=== PATIENT | male | born 1960 | race Caucasian/White ===

== ENCOUNTER 2017-09-17 05:50 | Inpatient (IN) | payer OTHER ==
[~2017-09-17] VITALS: Ht 182.9 cm; Wt 81.6 kg
[2017-09-17] VITALS (12 sets, daily range): BP systolic 117–166; BP diastolic 81–101
[2017-09-17] MEDS ORDERED: Vancomycin 1gm/D5W 275ml IVPB ONE ×2 (06:00)
[2017-09-17] MEDS ORDERED: Pantoprazole Inj IVP ONE (06:00)
[2017-09-17] MEDS ORDERED: Pantoprazole Inj ONE (06:11)
[2017-09-17] MEDS ORDERED: Vancomycin 1gm inj IVPB ONE (06:11)
[2017-09-17] MEDS ORDERED: Zemuron 50mg/5ml Inj IV ONE (06:12)
[2017-09-17] MEDS ORDERED: Sodium Chloride 10ml vial INJ ONE ×3 (06:24→09:48)
[2017-09-17] MEDS ORDERED: TRAMADOL HCL50 MG ORAL (06:37)
[2017-09-17] MEDS ORDERED: Dexamethasone 4mg/ml vial ONE ×2 (06:37→06:54)
[2017-09-17] MEDS ORDERED: Lidocaine 1% MPF 10mg/ml 5ml ONE (06:37)
[2017-09-17] MEDS ORDERED: NORCO 10-325 T1 EACH ORAL (06:37)
[2017-09-17] MEDS ORDERED: LISINOPRIL5 MG ORAL (06:37)
[2017-09-17] MEDS ORDERED: Lidocaine 1% Plain 30 ml INJ ONE ×4 (06:46→12:25)
[2017-09-17] MEDS ORDERED: LR 1000ml 1,000 ML IVLG SCH (06:50)
--- NOTE | 2017-09-17 06:52 | Anethesia Preoperative Eval ---
Anesthesia Pre-op PMH/ROS General Date of Evaluation: Sep 17, 2017 Time of Evaluation: 07:41 Anesthesiologist: Agustin ASA Score: ASA 2 Mallampati Score Class I : Soft palate, uvula, fauces, pillars visible Class II: Soft palate, uvula, fauces visible Class III: Soft palate, base of uvula visible Class IV: Only hard plate visible Mallampati Classification: Class II Surgeon: Lilli Diagnosis: Back Pain Surgical Procedure: TLIF L4-S1 Anesthesia History: none Family History: no anesthesia problems Allergies: Coded Allergies: No Known Allergies (Unverified , 09/10/17) Medications: see eMAR Past Medical History Cardiovascular: Reports: HTN PSxH Narrative: Sinus SX, Clavicular SX, L Femur Fx, RIH Anesthesia Pre-op Phys. Exam Physician Exam Last Vital Signs Date Time Temp Pulse Resp B/P (MAP) Pulse Ox O2 Delivery O2 Flow Rate FiO2 09/17/17 06:37 97.7 70 18 125/83 97 Room Air 97.7 Constitutional: NAD Neurologic: CN 2-12 intact Cardiovascular: RRR Respiratory: CTA Gastrointestinal: S/NT/ND Airway Exam Mallampati Score: Class II MO: full ROM: full Teeth: intact Anesthesia Pre-op A/P Risk Assessment & Plan Assessment: ASA 2 Plan: GA, BIS, GlideScope Status Change Before Surgery: No Pre-Antibiotics Dru Gram Vancomycin, 80 mg Gentamicin IV Given Within 1 Hr of Incision: Yes Time Given: 08:01 Faizan Velez MD Sep 17, 2017 06:52
[2017-09-17] MEDS ORDERED: fentaNYL 100 mcg/2 mL IV ONE ×4 (06:56→11:27)
[2017-09-17] MEDS ORDERED: fentaNYL 100 mcg/2 mL IV PRN (07:00)
[2017-09-17] MEDS ORDERED: oxyCODONE HCL/Acetaminophen 5/325mg ORAL PRN (07:00)
[2017-09-17] MEDS ORDERED: Hydromorphone 0.5mg/0.5ml inj IVP PRN (07:00)
[2017-09-17] MEDS ORDERED: Labetalol 5mg/ml 20ml vial IV PRN (07:00)
[2017-09-17] MEDS ORDERED: Norco 5mg/325mg tab ORAL PRN (07:00)
[2017-09-17] MEDS ORDERED: Metoclopramide 10mg/2ml Inj IVP PRN (07:00)
[2017-09-17] MEDS ORDERED: Atropine Inj 1mg/10ml Syr IV PRN (07:00)
[2017-09-17] MEDS ORDERED: Propofol 1,000mg/ 100ml btl IV ONE (07:00)
[2017-09-17] MEDS ORDERED: HYDROcodone/Acetamin 7.5/325 tab ORAL PRN ×3 (07:00→15:42)
[2017-09-17] MEDS ORDERED: Ketorolac 30mg Inj IV PRN ×2 (07:00)
[2017-09-17] MEDS ORDERED: LORazepam Inj 2mg/ml 1ml IV PRN (07:00)
[2017-09-17] MEDS ORDERED: DiphenhydrAMINE 50mg/ml Inj IVP PRN (07:00)
[2017-09-17] MEDS ORDERED: Midazolam 2mg/2ml Inj IVP PRN (07:00)
[2017-09-17] MEDS ORDERED: Heparin 1000 units/ml 1ml Vial ONE (07:09)
[2017-09-17] MEDS ORDERED: EPINEPHrine 1mg/1ml Amp ONE ×2 (07:09→08:44)
[2017-09-17] MEDS ORDERED: Thrombin 5000 units spray kit TOPIC ONE ×2 (07:09→10:32)
[2017-09-17] MEDS ORDERED: Thrombin 5000 units TOPIC ONE (07:10)
[2017-09-17] MEDS ORDERED: Bupivacaine 0.5% Inj 30 ml vial INJ ONE ×2 (07:11→08:44)
[2017-09-17] MEDS ORDERED: Gelfoam Absorbable 1gm powder pkt TOPIC ONE ×2 (07:11→10:32)
[2017-09-17] MEDS ORDERED: Bacitracin 50000 Units Vial ONE (07:11)
--- NOTE | 2017-09-17 07:29 | Immediate Post-Op Evaluation ---
Immediate Post-Op Evalulation Immediate Post-Op Evalulation Procedure: TLIF L4-S1 Date of Evaluation: Sep 17, 2017 Time of Evaluation: 14:13 IV Fluids: 1800 LR Blood Products: 0 Estimated Blood Loss: 200 Urinary Output: 1800 Blood Pressure Systolic: 166 Blood Pressure Diastolic: 94 Pulse Rate: 92 Respiratory Rate: 16 O2 Sat by Pulse Oximetry: 100 Temperature (Fahrenheit): 98 Pain Score (1-10): 3 Nausea: No Vomiting: No Complications 0 Patient Status: awake, reacts, patent, extubated, none Hydration Status: adequate Dru Gram Vancomycin, 80 mg Gentamicin IV Given Within 1 Hr of Incision: Yes Time Given: 08:01 Faizan Velez MD Sep 17, 2017 07:29
--- NOTE | 2017-09-17 07:59 | Pre-Procedure Note/Attestation ---
Pre-Procedure Note/Attestation Complete Prior to Procedure Planned Procedure: bilateral Procedure Narrative: Posterior lumbar decompression at L4-5 and L5-S1 Bilaterally, Pedicle screw fixation L4 to S1, interbody fusion with cage at L5-S1, Posterolateral arthrodesis at L4 to S1, application of epidural fat graft and use of allograft , autograft and iliac crest bone marrow aspirate. Attestation I attest that I discussed the nature of the procedure; its benefits; risks and complications; and alternatives (and the risks and benefits of such alternatives ), prior to the procedure, with the patient (or the patient's legal textile designs sales representative). I attest that, if there was a reasonable possibility of needing a blood transfusion, the patient (or the patient's legal textile designs sales representative) was given the [place] Department [employer] Services standardized written summary, pursuant to the [place] Blood Safety Act ([place] Health and Safety Code # 1645, as amended). I attest that I re-evaluated the patient just prior to the surgery and that there has been no change in the patient's H&P, except as documented below: MARYAM CHOWDARY Sep 17, 2017 07:59
[2017-09-17] MEDS ORDERED: NS Irrig 1000ml ONE (08:00)
[2017-09-17] MEDS ORDERED: Sterile Water Irrig 1000ml IRRIG ONE (08:00)
[2017-09-17] MEDS ORDERED: Acetaminophen (Non formulary) 100 ML IV ONE ×2 (08:00→14:45)
[2017-09-17] MEDS ORDERED: LR 1000ml ONE (08:00)
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
--- NOTE | 2017-09-17 14:31 | General Progress Note ---
Progress Note Progress Note Neurosurgery Recovery Room S/ Comfortable No leg pain O/ Vs: Last 24 Hour Vital Signs Date Time Temp Pulse Resp B/P (MAP) Pulse Ox O2 Delivery O2 Flow Rate FiO2 09/17/17 14:02 98 95 16 166/94 100 Simple Mask 6.0 98.0 09/17/17 14:00 208.4 92 16 100 09/17/17 09:00 97.7 09/17/17 06:37 97.7 70 18 125/83 97 Room Air 97.7 Alert smiling in good spirit Moves all extremities well Normal sensation in the upper and lowers bilaterally Dressing dry HV minimal output Doing well Admit to floor updated MARYAM CHOWDARY Sep 17, 2017 14:31
--- NOTE | 2017-09-17 15:42 | Diagnostic Imaging Report ---
Indication: Intraoperative, low back pain and left lower extremity greater than right lower extremity pain Technique: Intraoperative images Comparison: none Findings: Intraoperative images demonstrate surgical tool posterior to S1. Subsequent images document posterior fusion of L4, L5, and S1, and placement of a disc spacer at L5-S1 Impression: Intraoperative imaging, as described
[2017-09-17] MEDS: Acetaminophen (Non formulary) 100 ML IV SCH ×2 (15:45→16:31)
[2017-09-17] MEDS ORDERED: traMADol 50mg tab ORAL PRN (15:46)
[2017-09-17] MEDS ORDERED: Milk of Magnesia 30ml Ud ORAL PRN (15:47)
[2017-09-17] MEDS: NS w/KCl 20mEq 1,000 ML IV SCH (16:30)
[2017-09-17] MEDS: Docusate Sod/Senna tab ORAL SCH (17:50)
[2017-09-17] MEDS: Docusate 100mg cap ORAL SCH (17:50)
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
[2017-09-17] MEDS: Vancomycin 1 GM in D5W 275 ML IVPB SCH (20:14)
[2017-09-17] MEDS: Cyclobenzaprine 10mg Tab ORAL PRN (20:16)
[2017-09-18] VITALS: BP 140/72
[2017-09-18] MEDS: NS w/KCl 20mEq 1,000 ML IV SCH ×2 (03:47→12:07)
[2017-09-18 04:00] VITALS: BP 137/84
[2017-09-18 06:20] LABS: HEMOGLOBIN 12.9 G/DL (14.2-18.0); MEAN CORPUSCULAR VOLUME 86 FL (80-99); PLATELET COUNT 132 K/UL (150-450); RED BLOOD COUNT 4.19 M/UL (4.70-6.10); RED CELL DISTRIBUTION WIDTH 10.4 % (11.6-14.8); WHITE BLOOD COUNT 12.4 K/UL (4.8-10.8)
[2017-09-18 06:34] LABS: ANION GAP 4 mmol/L (5-15); BLOOD UREA NITROGEN 9 mg/dL (7-18); CALCIUM 8.3 MG/DL (8.5-10.1); CARBON DIOXIDE 30 MMOL/L (21-32); CHLORIDE 105 MMOL/L (98-107); CREATININE 0.8 MG/DL (0.55-1.30); POTASSIUM 3.9 MMOL/L (3.5-5.1); SODIUM 139 MMOL/L (136-145)
[2017-09-18] MEDS ORDERED: Meperidine 50mg/ml Inj(FOR RIGORS ONLY) IM PRN (07:00)
[2017-09-18] MEDS ORDERED: HydrOXYzine tab 25 MG TAB ORAL PRN (07:00)
[2017-09-18 08:00] VITALS: BP 127/74
[2017-09-18] MEDS: Hydromorphone 0.5mg/0.5ml inj IVP PRN ×2 (08:06→12:47)
--- NOTE | 2017-09-18 08:35 | 48 Hour Post Anesthesia Eval ---
Post Anesthesia Evaluation Procedure: TLIF L4-S1 Date of Evaluation: Sep 18, 2017 Time of Evaluation: 04:00 Blood Pressure Systolic: 137 0: 84 Pulse Rate: 66 Respiratory Rate: 18 Temperature (Fahrenheit): 97.7 O2 Sat by Pulse Oximetry: 97 Airway: patent Nausea: No Vomiting: No Pain Intensity: 0 Hydration Status: adequate Mental Status/LOC: patient returned to baseline Post-Anesthesia Complications: none Follow-up care needed: N/A Janell Dahl M.D. Sep 18, 2017 08:35
[2017-09-18] MEDS: Docusate Sod/Senna tab ORAL SCH ×2 (09:00→18:00)
[2017-09-18] MEDS ORDERED: Lisinopril 2.5mg tab ORAL SCH (09:00)
[2017-09-18] MEDS: Docusate 100mg cap ORAL SCH ×2 (09:00→18:00)
[2017-09-18] MEDS: Vancomycin 1 GM in D5W 275 ML IVPB SCH (09:08)
[2017-09-18] MEDS: Lisinopril 2.5mg tab ORAL SCH (09:09)
[2017-09-18 12:00] VITALS: BP 128/73
[2017-09-18 16:00] VITALS: BP 129/84
[2017-09-18] MEDS ORDERED: HYDROmorphone 2mg tab ORAL PRN (16:30)
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
[2017-09-18] MEDS: HYDROmorphone 2mg tab ORAL SCH ×2 (17:32→20:19)
[2017-09-18 20:06] VITALS: BP 147/89
[2017-09-18] MEDS: Cyclobenzaprine 10mg Tab ORAL PRN (21:37)
--- NOTE | 2017-09-18 21:42 | General Progress Note ---
Assessment/Plan Status Narrative s/p complex spine fusion lumbar perioperative antibiotic prophyalxis given post op dvt prophyalxis with scd pain controkl Physical therpay occupational therpay monitor enmanuel Subjective Date patient seen: Sep 18, 2017 Time patient seen: 21:40 Constitutional: Reports: no symptoms Allergies: Coded Allergies: No Known Allergies (Unverified , 09/10/17) Subjective has back pain radiating to the buttiocks no fever no chills no bm no nausea no vomiting Objective Last 24 Hour Vital Signs Date Time Temp Pulse Resp B/P (MAP) Pulse Ox O2 Delivery O2 Flow Rate FiO2 09/18/17 20:06 97.8 78 19 147/89 98 Room Air 97.8 09/18/17 16:00 97.1 75 20 129/84 95 Room Air 97.1 09/18/17 12:00 97.7 82 20 128/73 98 Room Air 97.7 09/18/17 09:09 137/84 09/18/17 08:35 207.9 66 18 97 09/18/17 08:00 97.6 78 20 127/74 98 Room Air 97.6 09/18/17 04:00 97.7 66 18 137/84 97 Room Air 97.7 09/18/17 00:00 97.4 59 18 140/72 98 Room Air 97.4 Intake and Output 09/17/17 09/18/17 19:00 07:00 Intake Total 4450 ml 1555.0 ml Output Total 4240 ml 2685 ml Balance 210 ml -1130.0 ml Intake Oral 550 ml 480 ml IV Total 3900 ml 1075.0 ml Output Urine Total 4000 ml 2550 ml Drainage Total 40 ml 135 ml Estimated Blood Loss 200 ml Laboratory Tests 09/18/17 05:15: White Blood Count 12.4H, Red Blood Count 4.19L, Hemoglobin 12.9L, Hematocrit 36.0L, Mean Corpuscular Volume 86, Mean Corpuscular Hemoglobin 30.7, Mean Corpuscular Hemoglobin Concent 35.7, Red Cell Distribution Width 10.4L, Platelet Count 132L, Mean Platelet Volume 9.1, Neutrophils (%) (Auto) , Lymphocytes (%) (Auto) , Monocytes (%) (Auto) , Eosinophils (%) (Auto) , Basophils (%) (Auto) , Differential Total Cells Counted 100, Neutrophils % ( Manual) 85H, Lymphocytes % (Manual) 8L, Monocytes % (Manual) 6, Eosinophils % ( Manual) 0, Basophils % (Manual) 0, Band Neutrophils 1, Platelet Estimate DecreasedL, Platelet Morphology Normal, Red Blood Cell Morphology Normal, Sodium Level 139, Potassium Level 3.9, Chloride Level 105, Carbon Dioxide Level 30, Anion Gap 4L, Blood Urea Nitrogen 9, Creatinine 0.8, Estimat Glomerular Filtration Rate > 60, Glucose Level 112H, Calcium Level 8.3L Height (Feet): 6 Height (Inches): 0.00 Weight (Pounds): 180 General Appearance: WD/WN Neck: other - no jvd Cardiovascular: normal rate, regular rhythm Respiratory/Chest: lungs clear Abdomen: non tender Extremities: other - no edema Marques Santoro MD Sep 18, 2017 21:42
[2017-09-19] VITALS: BP 133/70
[2017-09-19] MEDS: HYDROmorphone 2mg tab ORAL SCH ×2 (01:00→04:23)
[2017-09-19 04:00] VITALS: BP 118/76
[2017-09-19 08:00] VITALS: BP 117/72
[2017-09-19] MEDS: Docusate 100mg cap ORAL SCH (08:28)
[2017-09-19] MEDS: Lisinopril 2.5mg tab ORAL SCH (08:29)
[2017-09-19] MEDS: HYDROmorphone 2mg tab ORAL PRN ×2 (08:29→13:01)
[2017-09-19] MEDS: Docusate Sod/Senna tab ORAL SCH (08:29)
[2017-09-19] MEDS ORDERED: Tubing IV Secondary IV ONE (10:34)
--- NOTE | 2017-09-19 11:01 | General Progress Note ---
Progress Note Progress Note Neurosurgery S/Doing much better today, left leg pain is minimal. Ambulated several times and in th ehallway with PT. Lumbar brace fitted O/ Vs: Last 24 Hour Vital Signs Date Time Temp Pulse Resp B/P (MAP) Pulse Ox O2 Delivery O2 Flow Rate FiO2 09/19/17 08:29 117/72 09/19/17 08:00 97.5 78 20 117/72 96 Room Air 97.5 09/19/17 04:00 98.5 77 19 118/76 96 Room Air 98.5 09/19/17 00:00 98.4 79 18 133/70 97 Room Air 98.4 09/18/17 20:06 97.8 78 19 147/89 98 Room Air 97.8 09/18/17 16:00 97.1 75 20 129/84 95 Room Air 97.1 09/18/17 12:00 97.7 82 20 128/73 98 Room Air 97.7 Alert and oriented x 4 smiling in good spirit Incision dry and intact UE motor 5/5 Le motor 5/5 sensory normal doing well d/c planning and instructions d/w pt and nursing. MARYAM CHOWDARY Sep 19, 2017 11:01
[2017-09-19 12:03] VITALS: BP 112/74
[2017-09-19] MEDS ORDERED: CYCLOBENZAPRINE10 MG ORAL (12:24)
[2017-09-19] MEDS ORDERED: GABAPENTIN300 MG ORAL (12:25)
[2017-09-19] MEDS ORDERED: HYDROMORPHONE HC4 M1 PO (12:25)
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
== END 2017-09-19 13:20 | disposition home or self-care (01) | DRG 460 ==
LOC: SDSOVERFLO 05:50 → 3E 15:36
PROC: 0SG307J Fusion of Lumbosacral Joint with Autologous Tissue Substitute, Posterior Approach, Anterior Column, Open Approach (ICD-10-PCS; principal; 2017-09-17 07:30)
PROC: 0SG30AJ Fusion of Lumbosacral Joint with Interbody Fusion Device, Posterior Approach, Anterior Column, Open Approach (ICD-10-PCS; principal; 2017-09-17 07:30)
PROC: 07DR3ZZ Extraction of Iliac Bone Marrow, Percutaneous Approach (ICD-10-PCS; principal; 2017-09-17 07:30)
PROC: 0SG007J Fusion of Lumbar Vertebral Joint with Autologous Tissue Substitute, Posterior Approach, Anterior Column, Open Approach (ICD-10-PCS; principal; 2017-09-17 07:30)
PROC: 0ST40ZZ Resection of Lumbosacral Disc, Open Approach (ICD-10-PCS; principal; 2017-09-17 07:30)
DX: M51.37 Other intervertebral disc degeneration, lumbosacral region (principal); M51.16 Intervertebral disc disorders with radiculopathy, lumbar region; V89.2XXS Person injured in unspecified motor-vehicle accident, traffic, sequela; I10 Essential (primary) hypertension
CPT/HCPCS: 36415; 72020; 76001; 80048; 85007; 85025; 86850; 86900; 86901; 87081; 94003; 94150; C9399; J2405